=== PATIENT | male | born 1985 | race Caucasian/White ===

== ENCOUNTER → 2016-10-21 | Outpatient (CLI) | payer OTHER ==
[~2016-10-21] MED LIST: LISINOPRIL10 MG PO; NOMEDS XX; PREDNISONE 20MG20 MG PO
[2016-10-21 10:25] LABS: HEMOGLOBIN 15.8 g/dL (14.1-18.0); LYMPH # 2.2 K/mm3 (0.7-4.5); LYMPH % 26.9 % (10-50)
[2016-10-21 11:22] LABS: BUN 14 mg/dL (7-18)
[2016-10-21 11:24] LABS: GFR (ESTIMATED) 79 ML/MIN (>60)
== END ==
LOC: LAB 10:00
PROVIDERS: Nurse Practitioner Family
DX: R53.1 Weakness (principal)

== ENCOUNTER → 2016-11-07 | Outpatient (CLI) | payer OTHER ==
--- NOTE | 2016-11-07 10:45 | CARDIOVASCULAR REPORT ---
"Venous Exam Indications: 729.5 Pain in limb. varicose veins upper and inner thigh IMPRESSIONS 1. There is no evidence of significant Reflux. 2. No evidence of deep or superficial vein thrombosis involving the left lower extremity History: Risk factors: Current tobacco use. Left lower extremity venous duplex evaluation. Doppler flow study including spectral analysis, color and chacon scale imaging. Location: Vascular laboratory. Patient status: Outpatient. Tables: Venous flow and imaging: + +-------+ + |Location |Overall|Flow properties | + +-------+ + |Left common femoral |Patent |Normal phasicity; spontaneous; | | | |normal augmentation; compressible | + +-------+ + |Left saphenofemoral junction|Patent |Compressible | + +-------+ + |Left profunda femoral |Patent |Compressible | + +-------+ + |Left femoral |Patent |Normal phasicity; spontaneous; | | | |normal augmentation; compressible | + +-------+ + |Left greater saphenous |Patent |Normal phasicity; spontaneous; | | | |normal augmentation; compressible | + +-------+ + |Left popliteal |Patent |Normal phasicity; spontaneous; | | | |normal augmentation; compressible | + +-------+ + |Left posterior tibial |Patent |Compressible | + +-------+ + |Left peroneal |Patent |Compressible | + +-------+ + |Left gastrocnemius |Patent |Compressible | + +-------+ + |Left soleal |Patent |Compressible | + +-------+ + (Report amended ) Electronically signed by: Magdiel Land [id number]"
== END ==
LOC: RT 10-23 10:15
DX: I83.90 Asymptomatic varicose veins of unspecified lower extremity (principal)